=== PATIENT | female | born 1950 | race Caucasian/White ===

== ENCOUNTER 2017-03-30 05:09 | Emergency (ER) | payer OTHER ==
[~2017-03-30] VITALS: Ht 157.5 cm; Wt 89.4 kg
[~2017-03-30 05:09] MED LIST: ASPIRIN EC325 MG PO; CELEBREX200 MG PO; IRON325 M1 PO; LOSARTAN POTASS25 MG PO; ONE DAILY ESS400 MCG PO; OXYCODONE HCL5 MG PO; OXYCONTIN10 MG PO; PROTONIX40 MG PO; TYLENOL EXTRA500 MG PO
[2017-03-30 05:48] LABS: HEMATOCRIT 39.8 % (36.0-46.0); MCH 29.3 PG (29.0-34.0); MCHC 33.2 G/DL (30.0-36.0); MCV 88.4 FL (83-99); PLATELET COUNT 255 K/uL (156-360); RBC DIS.WIDTH-CV 13.7 % (11.8-14.6); RBC DIS.WIDTH-SD 44.4 % (39-53); WHITE BLOOD COUNT 8.7 K/uL (4.1-10.2)
[2017-03-30 05:56] LABS: CHLORIDE 108 mEq/L (99-109); POTASSIUM 3.6 mEq/L (3.7-5.4); SODIUM 137 mEq/L (136-147)
[2017-03-30 05:59] LABS: GLUCOSE 189 mg/dL (70-99)
[2017-03-30 06:00] LABS: ANION GAP 9 MEQ/L (2-14); TOTAL BILIRUBIN 0.5 mg/dL (0.0-1.0)
[2017-03-30 06:02] LABS: ALKALINE PHOSPHATASE 94 IU/L (3-129); GFR ESTIMATE (CALCULATED) > 59 mL/min/
[2017-03-30 06:03] LABS: UREA NITROGEN (BUN) 15 mg/dL (9-23)
[2017-03-30 06:06] LABS: LIPASE 20 U/L (1.0-51.0)
[2017-03-30] MEDS ORDERED: LORTAB 5-325 M1 EACH PO (08:02)
[2017-03-30] MEDS ORDERED: ZOFRAN ODT4 MG PO (08:02)
[2017-03-30] MEDS ORDERED: NAPROSYN500 MG PO (08:02)
[2017-03-30] MEDS ORDERED: FLOMAX0.4 MG PO (08:02)
[2017-03-30 08:04] LABS: ADD MIUA? YES; BILIRUBIN NEGATIVE; BLOOD LARGE; COLOR YELLOW ((YELLOW)); GLUCOSE (STRIP) 50; KETONES NEGATIVE; LEUKOCYTES NEGATIVE; NITRITE NEGATIVE; PROTEIN (STRIP) NEGATIVE; SPECIFIC GRAVITY 1.011 (1.000-1.030); UROBILINOGEN 0.2 MG/DL (0.2-1.0)
[2017-03-30 08:06] LABS: BACTERIA NONE SEEN /HPF; EPITHELIAL CELLS RARE /HPF; MUCUS TRACE /LPF; RED BLOOD CELLS 30-40 /HPF (0-5); UCUL ADDED? NO; WHITE BLOOD CELLS 0-5 /HPF (0-5)
[2017-03-30 08:33] VITALS: BP 114/63
== END 2017-03-30 07:47 | disposition home or self-care (01) ==
LOC: EME 05:09
PROVIDERS: Emergency Medicine
DX: N20.0 Calculus of kidney (principal); Z87.442 Personal history of urinary calculi; I10 Essential (primary) hypertension; K21.9 Gastro-esophageal reflux disease without esophagitis; Z87.891 Personal history of nicotine dependence
CPT/HCPCS: 74176; 80053; 81003; 83690; 85027; 99281; 99284; J1885; J2270; J2405; J3010; J7030